=== PATIENT | female | born 1985 | race Hispanic/Latino ===

== ENCOUNTER 2022-09-17 23:29 | Emergency (ER) | payer SELFPAY ==
[~2022-09-17] VITALS: Ht 152.4 cm; Wt 68.0 kg
[2022-09-18] MEDS ORDERED: DIPHENHYDRAMINE HCL 25 MG CAP PO ONE (00:15)
[2022-09-18] MEDS ORDERED: FAMOTIDINE 20 MG TAB PO ONE (00:15)
[2022-09-18] MEDS ORDERED: METHYLPREDNISOLONE SOD SUCC 125 MG/2ML VIAL IM ONE (00:15)
[2022-09-18] MEDS ORDERED: AZITHROMYCIN250 MG PO (00:16)
[2022-09-18] MEDS ORDERED: MEDROL4 M2 PO (00:16)
== END 2022-09-18 00:47 | disposition home or self-care (01) ==
LOC: ER 23:40
DX: L30.9 Dermatitis, unspecified (principal); J20.9 Acute bronchitis, unspecified; T78.40XA Allergy, unspecified, initial encounter; Z20.822 Contact with and (suspected) exposure to COVID-19
CPT/HCPCS: 71046; 99283; J2930; U0002